=== PATIENT | male | born 1995 | race Caucasian/White ===

== ENCOUNTER 2019-05-27 12:22 | Emergency (ER) | payer SELFPAY ==
[~2019-05-27] VITALS: Ht 188 cm; Wt 84.4 kg
--- NOTE | 2019-05-27 12:22 | NUR ---
BROUGHT IN BY MERCEDES KILGORE, PLACED IN BED IN [facility], 3 SUSTAINABILITY COMMUNICATOR WITH PT. PT HERE FOR OK TO BOOK. PT IS NOT COOPERATIVE WITH TRIAGE. REPORT GIVEN TO CHAPITO
--- NOTE | 2019-05-27 12:52 | NUR ---
Patient given written and verbal discharge instructions SHERIFF. CHITO MCNALLY discussed with patient the results and treatment provided. Patient in stable condition. ID arm band removed. Patient educated on pain management and to follow up with PMD. Pain Scale 0/10. Opportunity for questions provided and answered.
== END 2019-05-27 12:50 ==
LOC: SED 12:22
DX: R45.1 Restlessness and agitation (principal)
CPT/HCPCS: 99283